=== PATIENT | male | born 1990 | race Caucasian/White ===

== ENCOUNTER 2023-08-25 13:34 | Emergency (ER) | payer OTHER, SELFPAY ==
[2023-08-25 13:46] VITALS: BP 129/74; PULSE 99; RESP 16; TEMP 38.1; O2SAT 99
--- NOTE | 2023-08-25 14:06 | ED.GENADULT ---
HPI - General Adult General Chief complaint: Extremity Injury, Upper Stated complaint: Chills/Numbness to Fingers/Nausea Source: patient and RN notes reviewed History of Present Illness HPI narrative: 32 yo M presents to urgent care with complaints of body aches, ARMENDARIZ, and nausea that started at 0800 today. Pt states about 8:30 am, his finger tips and hands turned blue for approximately 30 minutes. Pt states he was very cold at this time when his hands turned blue. Pt states he couldn't feel his hands at this time. Pt states he became anxious after his hands turned blue but was not hyperventilating prior to this. Pt denies any vomiting, chest pain, SOB, diarrhea, abdominal pain, sore throat, ear pain, or congestion. Review of Systems Review of Systems: Pertinent positives and pertinent negatives per HPI. PMFSH Comments At the time of my signature, I reviewed and agree with the nursing past medical, surgical, social, and family history. There is no relevant family history pertinent to the patient complaint. Exam Narrative: GENERAL: This is a well-nourished, well-developed patient, in no apparent distress. HEAD: normocephalic, atraumatic. EYES: Sclera clear/white. Vision is grossly intact. EARS: External ears normal, auditory canals clear and without drainage, TMs normal without perforation. Hearing grossly intact. NOSE: External nose normal with no obvious nasal discharge, nares without redness, no rhinorrhea. THROAT: Mucous membranes moist, posterior pharynx clear. NECK: Neck supple, non-tender without lymphadenopathy, masses or thyromegaly. CARDIOVASCULAR: Regular rate and rhythm without murmurs, gallops, or rubs. RESPIRATORY: Clear to auscultation. Breath sounds equal bilaterally. No wheezes, rales, or rhonchi. GASTROINTESTINAL: Abdomen soft, non-tender, nondistended. Bowel sounds are active. No hepato-splenomegaly, or palpable masses. No guarding. SKIN: warm, intact with no suspicious lesions or rash, good texture and turgor. NEURO: awake, alert, and oriented to person, place and time. There were no obvious focal neurologic abnormalities. EXTREMITIES: No clubbing, cyanosis, or edema. No joint tenderness, effusion, or edema noted. Cap refill < 2 sec. BACK: Nontender without deformity or crepitus. No flank tenderness. Course Course Level of Care: Express Care Visit Vital Signs Vital signs: Vital Signs Temperature 100.5 F H 08/25/23 13:46 Pulse Rate 99 08/25/23 13:46 Respiratory Rate 16 08/25/23 13:46 Blood Pressure 129/74 08/25/23 13:46 Pulse Oximetry 99 08/25/23 13:46 Oxygen Delivery Room Air 08/25/23 13:46 Temperature 100.5 F H 08/25/23 13:46 Pulse Rate 99 08/25/23 13:46 Respiratory Rate 16 08/25/23 13:46 Blood Pressure 129/74 08/25/23 13:46 Pulse Oximetry 99 08/25/23 13:46 Oxygen Delivery Room Air 08/25/23 13:46 reviewed Medical Decision Making MDM Narrative Medical decision making narrative: Viral illness may last between 7-21 days; antibiotics do not cure viral illness and are NOT recommended at this time. Also, recommend symptomatic treatment includes: rest, fluids, and increase humidity of the air at home. Recommend Acetaminophen as directed on the bottle to reduce fever, pain, headache. Please schedule a follow-up visit with your personal physician for further evaluation and treatment within 3-5days. If your symptoms persist, change or worsen significantly before you can contact your personal physician then please, without delay, go to the emergency department for further evaluation. Differential Diagnosis Differential Diagnosis: viral illness, raynaud's, hyperventilating Vital Signs Vital Signs: Vital Signs Temperature 100.5 F H 08/25/23 13:46 Pulse Rate 99 08/25/23 13:46 Respiratory Rate 16 08/25/23 13:46 Blood Pressure 129/74 08/25/23 13:46 Pulse Oximetry 99 08/25/23 13:46 Oxygen Delivery Room Air 08/25/23 13:46 Temperature 100.5
== END 2023-08-25 14:10 | disposition home or self-care (01) ==
PROVIDERS: Emergency Provider Nurse Practitioner Family
DX: B34.9 Viral infection, unspecified (principal)
CPT/HCPCS: 99213; G0463

== ENCOUNTER 2025-03-17 17:43 | Emergency (ER) | payer SELFPAY ==
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
--- OUTSIDE RECORDS SUMMARY | 2025-03-17 17:45 | XMS_ITS | Encounter Summary ---
Author Organization [facility] Healthcare Address [address] [place] [address] Care Team Providers Care Timber Management Assistant Name Role Phone Kenyon Phillips MD Primary Care Provider [phone] Reason for Visit * Diagnostic Imaging (Routine) - Closed Specialty Diagnoses / Procedures Referred By Contac t Referred To Contact Diagnoses Left knee pain, unspecified chronicity Procedures XR Pelvis 1 or 2 Views Brenda Frank PA [address] [place] [address] Phone: tel: fax: Referral ID Status Reason Start Date Expiration Date Visits Re quested Visits Authorized [id number] Closed 07/25/2023 08/23/2024 1 1 Encounter Details Date Type Department Care Team ([facility] st Contact Info) Description 07/25/2023 7:49 AM CDT Hospital Encounter [facility] Medical Group Orthopedics and Sports Medicine [address] [phone] Social History Tobacco Use Types Packs/Day Years Used Date Smoking Tobacco: Every Day Cigarettes 0.8 12.4 Started: 10/10/2012 Passive Smoke Exposure: Never Smokeless Tobacco: Never AUDIT-C Answer Date Recorded Q1: How often do you have a drink containing alc ohol? 2-3 times a week 09/14/2023 Q2: How many drinks containi ng alcohol do you have on a typical day when you are drinking? 3 or 4 09/14/2023 Q3: How often do you have si x or more drinks on one occasion? Never 09/14/2023 PHQ-2 Answer Date Recorded PHQ-2 Total Score (If total score is 3 or more points, staff should administer the PHQ-9) 0 09/14/2023 Personal Safety Answer Date Recorded Getting School Help Needed Not on file 09/29 Sex and Gender Information Value Date Recorded Sex Assigned at Not on file Legal Sex Male 9:54 AM CDT Gender Identity Not on file Sexual Orientation Not on file documented as of this encounter Functional Status * Audit-C Score Answer Date of Assessment Author 4 09/14/2023 10:58 AM Danielle Champion MA * Question Answer Date of Assessment Author Q1: How often do you have a drink containing alcohol? 2-3 times a week 09/14/2023 10:58 AM Judi Champion MA Q2: How many drinks containing alcohol do you have on a typical day when you are drinking? 3 or 4 09/14/2023 10:58 AM Judi Champion MA Q3: How often do you have six or more drinks on one occasion? Never 09/14/2023 10:58 AM Judi Champion MA documented as of this encounter Plan of Treatment Not on file documented as of this encounter Procedures Procedure Name Priority Date/Time Associated Diagnosis Comments XR PELVIS 1 OR 2 VIEWS Schedule Routine, Read Routine (OP Routine) 07/25/2023 1:04 PM CDT Left knee pain, unspecified chronicity documented in this encounter Results * XR Pelvis 1 or 2 Views (07/25/2023 1:04 PM CDT) Anatomical Region Laterality Modality Body, Pelvis N/A Digital Radiogra phy Narrative 07/25/2023 1:31 PM CDT X-ray of the pelvis reviewed and interpreted. There is no evidence of fracture, subluxation, or bony abnormality. Bilateral hip joint spaces well maintained. Brenda MILLAN IMMarcio XR PROCEDURES Nikki l Result documented in this encounter Visit Diagnoses Not on filedocumented in this encounter Care Teams Timber Management Assistant Relationship Specialty Start Date End Date Kenyon Pihllips MD NPI: [id number] [place] [address] [place] [address] PCP - General Family Medicine 06/15/23 documented as of this encounter
--- OUTSIDE RECORDS SUMMARY | 2025-03-17 17:45 | XMS_ITS | Continuity of Care Document ---
Author Organization [facility] Address [address] [place] [address] [place] [phone] Phone Care Team Providers Care Windows Administrator Name Role Phone Edy PT, MICAELAT, Isabella Unavailable Unavailable Procedures Procedure Date Progress Note Therapeutic Activities Neuromuscular Re-Ed Therapeutic Exercise Manual Therapy Therapeutic Activities Neuromuscular Re-Ed Therapeutic Exercise Manual Therapy Therapeutic Activities Neuromuscular Re-Ed Manual Therapy Therapeutic Exercise Therapeutic Activities Neuromuscular Re-Ed Therapeutic Exercise Manual Therapy Therapeutic Activities Neuromuscular Re-Ed Therapeutic Exercise Manual Therapy Therapeutic Activities Neuromuscular Re-Ed Therapeutic Exercise Manual Therapy Therapeutic Activities Neuromuscular Re-Ed Therapeutic Exercise Manual Therapy Therapeutic Activities Neuromuscular Re-Ed Therapeutic Exercise Manual Therapy Therapeutic Activities Neuromuscular Re-Ed Therapeutic Exercise Manual Therapy Therapeutic Activities Neuromuscular Re-Ed Therapeutic Exercise Manual Therapy PT Evaluation Low Complexity Therapeutic Activities Neuromuscular Re-Ed Therapeutic Exercise Manual Therapy Advance Directives Directive Yes / No Effective Date File Name No Information Encounters Encounter Description Practice Location Reason(s) For Visit Diagnoses Date Provider Providers Copied on Encounter [facility], [id number], tel:[phone] [place] No Information Edy Sewon. . [facility] [facility], [id number], tel:[phone] [place] No Information Edy Sewon. . Referring Provider: Jaciel [facility] [address], [place], [address]. tel:[phone] [place] [id number] [place] Heidi [address] [place] [address], [id number], tel:[phone] [place] No Information Addi Dent. . Referring Provider: Jaciel [facility] [address], [place], [address]. tel:[phone] [facility] [place] [address]idi [address] [place] [address], [id number], tel:[phone] [place] No Information Addi Dent. . Referring Provider: Jaciel [facility] [address], [place], [address]. tel:[phone] [facility] [place] Heidi [address] [place] [address], [id number], tel:[phone] [place] No Information Nickie Fallon. [address] [facility], [address], [place], [place], [facility], . tel:[phone] Referring Provider: Jaciel [facility] [address], [place], [address]. tel:[phone] [place] [id number] [facility] [address] [place] [address], [id number], [place] tel:[phone] [place] No Information Nickie Fallon. [address] [facility], [address], [place], [place], [facility], . tel:[phone] Referring Provider: Jaciel [facility] [address], [place], [address]. tel:[phone] [place], [place] [id number] [facility] [address] [place] [address], [id number], [place] tel:[phone] [place] No Information Addi Dent. . Referring Provider: Jaciel [facility] [address], [place], [address]. tel:[phone] [place], [place] [id number] [place] Heidi [address] [place] [address], [id number], [place] tel:[phone] [place] No Information Addi Dent. . Referring Provider: Jaciel [facility] [address], [place], [address]. tel:[phone] [place] [id number] [place] Heidi [address] [place] [address], [id number], [place] tel:[phone] [place] No Information Nickie aFllon. [address] [facility], [address], [place], [place], [facility], [place]. tel:[phone] Referring Provider: Jaciel [facility] [address], [place], [address]. tel:[phone] [place], [place] [id number] [facility] [address] [place] [address], [id number], [place] tel:[phone] [place] No Information Addi Dent. . Referring Provider: Jaciel [facility] [address], [place], [address]. tel:[phone] [facility] [address] [place] [address], [id number], tel:[phone] [place] No Information Addi Filipe. . Referring Provider: Jaciel [facility] [address], [place], [address]. tel:[phone] [facility], [address] [place], [place], [id number], tel:[phone] [place] No Information Rikki Pickett. . Referring Provider: Jaciel [facility] [address], [place], [address]. tel:[phone] Family History Family Member Type Diagnosis Age At Onset No Information Payers Payer name Insurance type Covered constitution party ID My burtsoy(s) [employer] CI [id number] Social History Type Description Quantity Date Captured Comments Sex Male Smoking Status No Information Chief Complaint And Reason For Visit No Information Reason For Referral Reason For Referral No Information Plan Of Treatment Date Type Action Status Goal Tobacco Cessation Counseling completed Goal Tobacco cessation counseling completed Goal Tobacco Cessation Counseling completed History Of Present Illness Encounter Date Complaint History Of Prese nt Illness No Information Functional Status Date Functional Assessmen t No Information Instructions Date Instruction Additional Infor mation No Information Assessments Type Assessment Date No Information Patient Care Teams Name Effective Dates (start - stop) Status Members No Information
--- OUTSIDE RECORDS SUMMARY | 2025-03-17 17:45 | XMS_ITS | Clinical Summary ---
Author Organization [facility] Address [address] [facility] [address] [place] [address] Phone Care Team Providers Care Commissioning Specialist Name Role Phone Kenyon Phillips MD Primary Care Provider [phone] Allergies Active Allergy Reactions Criticality Noted Date Comments Sulfa (Sulfonamide Antibiotics) Unknown 05/23/2023 Reportedly was informed as a child Medications naproxen sodium (ALEVE ORAL) Take by mouth Act christin fluticasone propionate (FLONASE) 50 mcg/actuation nasal spray Administer 2 sprays into each nostril daily 1 each 3 Active Active Problems Problem Noted Date Diagnosed Date Non-recurrent acute suppurat christin otitis media of left ear without spontaneous rupture of tympanic membrane 09/14/2023 Assessment & Plan (09/14/2023 12:13 PM STITCHER FEEDER): Will treat with Augmentin. I also gave him Flonase. If symptoms do not improve in 5-10 days I asked him return for recheck Mild intermittent asthma without complication Assessment & Plan (06/15/2023 10:20 AM CDT): Stable at this time Has not been using inhalers since he moved away from [place] Immunizations Immunization Administration Dates Next Due DTaP 05/30/1996, 4,1990,11/27 Hep B, Adolescent or Pediatric 02/27/2001,1999,08/23/2000 HiB 12/14/1991,04/05/1991 Influenza, Quadrivalent, Rec ombinant, Egg Free, Preservative Free, Intramuscular 12/27/2018 Influenza, Unspecified 09/14/2023(Deferr ed: Patient Refused),06/10/2022(Deferred: Patient Refused) MMR 05/30/1996,12/14/1991 OPV 05/30/1996, 4,04/05/1991,12/25,1990 Medical History Medical History Date Comments Asthma Family History Medical History Relation Name Comments No Known Problems Father Crohn's disease Mother Lupus Mother Relation Name Status Comments Father Alive Mother Alive Social History Tobacco Use Types Packs/Day Years Used Date Smoking Tobacco: Every Day Cigarettes 0.8 12.4 Started: 10/10/2012 Passive Smoke Exposure: Never Smokeless Tobacco: Never Tobacco Cessation:Ready to Q uit: Yes AUDIT-C Answer Date Recorded Q1: How often [...] on file Sexual Orientation Not on file Obstetrics History Last Filed Vital Signs Vital Sign Reading Time Taken Comments Blood Pressure 118/74 09/14/2023 10:59 AM STITCHER FEEDER Pulse 76 09/14/2023 10:59 AM STITCHER FEEDER Temperature - - Respiratory Rate 16 09/14/2023 10:59 AM STITCHER FEEDER Oxygen Saturation 97% 09/14/2023 10:59 AM STITCHER FEEDER Inhaled Oxygen Concentration - - Weight 71.3 kg (157 lb 3.2 oz) 09/14/2023 10:59 AM STITCHER FEEDER Height 183 cm (6' 0.05) 09/14/2023 10:59 AM STITCHER FEEDER Body Mass Index 21.29 09/14/2023 10:59 AM STITCHER FEEDER Plan of Treatment Health Maintenance Due Date Last Done Comments Hepatitis C Screening 1990 DTaP/Tdap/Td Vaccine (5 - Tdap) 2001 05/30/1996, 01/25/1994, 1990, Additional history exists Varicella Vaccines (1 of 2 - 13+ 2-dose series) 2003 Regular Well Visit/Exam 18-64 2008 Pneumococcal vaccine <65 (1 of 2 - PCV) 2009 Depression Screening 09/14/2024 09/14/2023, 06/15/20 23 Influenza Vaccine (Season Ended) 2025 12/27/2018 Hepatitis B Screening Completed 02/27/2001 , 09/26/2000, 08/23/2000 HPV Vaccines Aged Out No longer eligi ble based on patient's age to complete this topic Insurance [employer] OPEN ACCESS Care Teams Commissioning Specialist Relationship Specialty Start Date End Date Kenyon Phillips MD [address] [facility] [address] [place] [address] PCP - General Family Medicine 06/15/23
--- OUTSIDE RECORDS SUMMARY | 2025-03-17 17:45 | XMS_ITS | Encounter Summary ---
Author Organization [facility] Healthcare Address [address] [place] [address] Care Team Providers Care Door Liner Name Role Phone Kenyon Phillips MD Primary Care Provider [phone] Reason for Visit * Diagnostic Imaging (Routine) - Closed Specialty Diagnoses / Procedures Referred By Contac t Referred To Contact Diagnoses Left knee pain, unspecified chronicity Procedures XR Knee Left 4 or More Views Brenda Frank PA [address] [place] [address] Phone: tel: fax: Referral ID Status Reason Start Date Expiration Date Visits Re quested Visits Authorized [id number] Closed 07/25/2023 08/23/2024 1 1 Encounter Details Date Type Department Care Team ([facility] st Contact Info) Description 07/25/2023 7:49 AM CDT Hospital Encounter [facility] Medical Group Orthopedics and Sports Medicine [address] [phone] Social History Tobacco Use Types Packs/Day Years [...] Name Priority Date/Time Associated Diagnosis Comments XR KNEE LEFT 4 OR MORE VIEWS Schedule Routine, Read Routine (OP Routine) 07/25/2023 1:04 PM CDT Left knee pain, unspecified chronicity documented in this encounter Results * XR Knee Left 4 or More Views (07/25/2023 1:04 PM CDT) Anatomical Region Laterality Modality Lower Extremities, Knee Left Digital Radiography Narrative 07/25/2023 1:31 PM CDT X-ray of the left knee viewed and interpreted. There is no evidence of fracture, subluxation, or bony abnormality. Joint spaces well-maintained. Brenda MILLAN IMG XR PROCEDURES Nikki l Result documented in this encounter Visit Diagnoses Not on filedocumented in this encounter Care Teams Door Liner Relationship Specialty Start Date End Date Kenyon Phillips MD [address] [address] PCP - General Family Medicine 06/15/23 documented as of this encounter
--- OUTSIDE RECORDS SUMMARY | 2025-03-17 17:45 | XMS_ITS | Clinical Summary ---
Author Organization [facility] Address [address] [place] [address] Phone Care Team Providers Care Sybase Developer Name Role Phone Provider, None Primary Care Provider Unavailabl e Allergies Active Allergy Reactions Criticality Noted Date Comments Sulfa Antibiotics Unknown 05/23/2023 Medications No known medications Social History Tobacco Use Types Packs/Day Years Used Date Smoking Tobacco: Unknown Tobacco Cessation:Counseling Given: Not Answered Sex and Gender Information Value Date Recorded Sex Assigned at Male 05/23/2023 3:15 PM CDT Legal Sex Male 11:37 PM CDT Gender Identity Male 05/23/2023 3:15 PM CDT Sexual Orientation Not on file Last Filed Vital Signs Vital Sign Reading Time Taken Comments Blood Pressure 138/93 05/23/2023 3:15 PM CDT Pulse 69 05/23/2023 3:15 PM CDT Temperature 37 C (98.6 F) 05/23/2023 2:37 PM CDT Respiratory Rate 16 05/23/2023 2:37 PM CDT Oxygen Saturation 95% 05/23/2023 3:15 PM CDT Inhaled Oxygen Concentration - - Weight 69.8 kg (153 lb 14.1 oz) 05/23/2023 2:37 PM CDT Height 182.9 cm (6') 05/23/2023 2:37 PM CDT Body Mass Index 20.87 05/23/2023 2:37 PM CDT Plan of Treatment Health Maintenance Due Date Last Done Comments Hepatitis C Virus (HCV) Screening 1990 TdaP Immunization 1990 SARS-COV-2 Immunization ( season) 2024 Influenza Immunization (Season Ended) 2025 12/27/2018 Respiratory Syncytial Virus (RSV) Immunization (Adult) (1 - 1-dose 75+ series) 2065 DTaP/Tdap/Td Immunization Discontinued 1995, 01/25/1994, 1990, Additional history exists Hepatitis B Immunization Completed 001, 09/26/2000, 08/23/2000 Human Papillomavirus (HPV) Immunization Aged Out No longer eligible based on patient's age to complete this topic Meningococcal Immunization (ACWY) Aged Out No longer eligible based on patient's age to complete this topic Pneumococcal Immunization Combined Aged Out No longer eligible based on patient's age to complete this topic Rotavirus Immunization Aged Out No lo nger eligible based on patient's age to complete this topic Insurance [employer] Care Teams Sybase Developer Relationship Specialty Start Date End Date Provider, None [place] PCP - General 05/23/23
--- OUTSIDE RECORDS SUMMARY | 2025-03-17 17:45 | XMS_ITS | Continuity of Care Document ---
Author Organization [facility] Address [address] [facility] [address] [place] [address] Phone Care Team Providers Care Vat Skimmer Name Role Phone Dav Álvarez Unavailable Unavailable Procedures Procedure Date Office Consultation Ophthalmoscopy Eye Exam Established Pt Eye Exam, New Patient Advance Directives Directive Yes / No Effective Date File Name No Information Encounters Encounter Description Practice Location Reason(s) For Visit Diagnoses Date Provider Providers Copied on Encounter Office Consultation [facility], [address] [place] [address] [address], [place], [place], [id number], tel:[phone] [facility] No Information [address] [place], [address], [place]. tel:[phone] Referring Provider: Bruno Mcginnis OD Latanya, [address], [place], [address]. tel:[phone] [facility], [address] [place] [address] [address], [place], [place], [id number], tel:[phone] [facility] No Information 8-[address] 7 Mcginnis OD Bruno. [address], [place], [address], [place]. tel:[phone] [facility], [address], [place], [place], [id number], [place] tel:[phone] [facility] No Information 7 Jevon Myers. [address], [place], [address], [place]. tel:[phone] Referring Provider: Chelsea Daniel MD, [address], [place], [address]. tel:[phone] Family History Family Member Type Diagnosis Age At Onset No Information Payers Payer name Insurance type Covered green party ID Authoriza tion(s) No Information Social History Type Description Quantity Date Captured Comments Sex Male Smoking Status No Information Chief Complaint And Reason For Visit No Information Reason For Referral Reason For Referral No Information History Of Present Illness Encounter Date Complaint History Of Prese nt Illness No Information Functional Status Date Functional Assessmen t No Information Instructions Date Instruction Additional Infor mation No Information Assessments Type Assessment Date No Information Patient Care Teams Name Effective Dates (start - stop) Status Members No Information
--- OUTSIDE RECORDS SUMMARY | 2025-03-17 17:45 | XMS_ITS | Referral Summary ---
Author Organization [facility] Address [address] [place] [address] Phone Care Team Providers Care Director Of Retail Merchandising Name Role Phone Kenyon Phillips MD Primary Care Provider [phone] Allergies Active Allergy Reactions Criticality Noted Date [...] 09/14/2023 Assessment & Plan (09/14/2023 12:13 PM BIT AND SHANK DEPARTMENT SUPERVISOR): Will treat with Augmentin. I also gave him Flonase. If symptoms do not improve in 5-10 days I asked him return for recheck Mild intermittent asthma without complication Assessment & Plan (06/15/2023 10:20 AM CDT): Stable at this time Has not been using inhalers since [place] Immunizations Immunization Administration Dates Next Due DTaP 05/30/1996, 4,1990,11/27 Hep B, Adolescent or Pediatric 02/27/2001,1999,08/23/2000 HiB 12/14/1991,04/05/1991 Influenza, Quadrivalent, Rec ombinant, Egg Free, Preservative Free, Intramuscular 12/27/2018 Influenza, Unspecified 09/14/2023(Deferr ed: Patient Refused),06/10/2022(Deferred: Patient Refused) MMR 05/30/1996,12/14/1991 OPV 05/30/1996, 4,04/05/1991,12/25,1990 Social History Tobacco Use Types Packs/Day Years [...] on file Sexual Orientation Not on file Last Filed Vital Signs Vital Sign Reading Time Taken Comments Blood Pressure 118/74 09/14/2023 10:59 AM BIT AND SHANK DEPARTMENT SUPERVISOR Pulse 76 09/14/2023 10:59 AM BIT AND SHANK DEPARTMENT SUPERVISOR Temperature - - Respiratory Rate 16 09/14/2023 10:59 AM BIT AND SHANK DEPARTMENT SUPERVISOR Oxygen Saturation 97% 09/14/2023 10:59 AM BIT AND SHANK DEPARTMENT SUPERVISOR Inhaled Oxygen Concentration - - Weight 71.3 kg (157 lb 3.2 oz) 09/14/2023 10:59 AM BIT AND SHANK DEPARTMENT SUPERVISOR Height 183 cm (6' 0.05) 09/14/2023 10:59 AM BIT AND SHANK DEPARTMENT SUPERVISOR Body Mass Index 21.29 09/14/2023 10:59 AM BIT AND SHANK DEPARTMENT SUPERVISOR Plan of Treatment Not on file Insurance HE[employer] OPEN ACCESS HE[employer]LINK OPEN ACCESS Care Teams Director Of Retail Merchandising Relationship Specialty Start Date End Date Kenyon Phillips MD [address] [place] [address] PCP - General Family Medicine 06/15/23
[2025-03-17 17:55] VITALS: BP 136/91; PULSE 88; RESP 18; TEMP 36.6; O2SAT 100
--- NOTE | 2025-03-17 19:22 | PC.NURSE ---
Report received from SUKUMAR Juarez. Assumed care of patient at this time.
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
--- OUTSIDE RECORDS SUMMARY | 2025-03-17 20:13 | XMS_ITS | Continuity of Care Document ---
Author Organization [email or web address] [facility] Address [address] [place] [address] [place] [id number] Phone Care Team Providers Care Instrument Shop Supervisor Name Role Phone Edy PT, MICAELAT, Isabella [...] Re-Ed Therapeutic Exercise Manual Therapy Therapeutic Activities Therapeutic Exercise Neuromuscular Re-Ed Manual Therapy Therapeutic Activities Neuromuscular Re-Ed Therapeutic [...] Diagnoses Date Provider Providers Copied on Encounter [facility], [id number], tel:[phone] [place] No Information Edy Sewon. . [facility], [id number], tel:[phone] [place] No Information Edy Sewon. . Referring Provider: Jaciel Peraza [facility] [address], [place], [address]. tel:[phone] [place], [place] [id number] [place] Heidi [address] [place] [address], [id number], tel:[phone] [place] No Information Addi Dent. . Referring Provider: Jaciel Peraza [facility] [address], [place], [address]. tel:[phone] [facility] [place] [address]idi [address] [place] [address], [id number], tel:[phone] [place] No Information Addi Dent. . Referring Provider: Jaciel Peraza [facility] [address], [place], [address]. tel:[phone] [facility] [place] [address]idi [address] [place] [address], [id number], tel:[phone] [place] No Information Nickie Fallon. [address] [facility], [address], [place], [place], [facility], . tel:[phone] Referring Provider: Jaciel Peraza [facility] [address], [place], [address]. tel:[phone] [place], [place] [id number] [facility] [address] [place] [address], [id number], [place] tel:[phone] [place] No Information Nickie Fallon. [address] [facility], [address], [place], [place], [facility], . tel:[phone] Referring Provider: Jaciel Peraza [facility] [address], [place], [address]. tel:[phone] [place], [place] [id number] [facility] [address] [place] [address], [id number], [place] tel:[phone] [place] No Information Addi Dent. . Referring Provider: Jaciel Peraza [facility] [address], [place], [address]. tel:[phone] [place], [place] [id number] [place] Heidi [address] [place] [address], [id number], [place] tel:[phone] [place] No Information Addi Dent. . Referring Provider: Jaciel Peraza [facility] [address], [place], [address]. tel:[phone] [place], [place] [id number] [place] Heidi [address] [place] [address], [id number], [place] tel:[phone] [place] No Information Nickie Fallon. [address] [facility], [address], [place], [place], [facility], [place]. tel:[phone] Referring Provider: Jaciel Peraza [facility] [address], [place], [address]. tel:[phone] [place] [id number] [facility] [address] [place] [address], [id number], [place] tel:[phone] [place] No Information Addi Dent. . Referring Provider: Jaciel Peraza [facility] [address], [place], [address]. tel:[phone] [facility] [address] [place] [address], [id number], tel:[phone] [place] No Information Addi Filipe. . Referring Provider: Jaciel Peraza [facility] [address], [place], [address]. tel:[phone] [facility], [address], [place], [id number], tel:[phone] [place] No Information Rikki Pickett. . Referring Provider: Jaciel Peraza [facility] [address], [place], [address]. tel:[phone] Family History Family Member Type Diagnosis Age At Onset No Information Payers Payer name Insurance type Covered constitution party ID My burtsoy(s) [employer] CI [id number] Social History Type Description Quantity Date Captured [...]
--- OUTSIDE RECORDS SUMMARY | 2025-03-17 20:13 | XMS_ITS | Clinical Summary ---
Author Organization [facility] Address [address] [place] [address] Phone Care Team Providers Care Asbestos Brake Lining Finisher Helper Name Role Phone Kenyon Phillips MD Primary Care Provider [phone] Allergies Active Allergy Reactions Criticality Noted Date [...] 09/14/2023 Assessment & Plan (09/14/2023 12:13 PM STUDENT UNION CONSULTANT): Will treat with Augmentin. I also gave him Flonase. If symptoms do not improve in 5-10 days I asked him return for recheck Mild intermittent asthma without complication Assessment & Plan (06/15/2023 10:20 AM CDT): Stable at this time Has not been using inhalers since he moved away from [place] Immunizations Immunization Administration Dates Next Due DTaP [...] Comments Blood Pressure 118/74 09/14/2023 10:59 AM STUDENT UNION CONSULTANT Pulse 76 09/14/2023 10:59 AM STUDENT UNION CONSULTANT Temperature - - Respiratory Rate 16 09/14/2023 10:59 AM STUDENT UNION CONSULTANT Oxygen Saturation 97% 09/14/2023 10:59 AM STUDENT UNION CONSULTANT Inhaled Oxygen Concentration - - Weight 71.3 kg (157 lb 3.2 oz) 09/14/2023 10:59 AM STUDENT UNION CONSULTANT Height 183 cm (6' 0.05) 09/14/2023 10:59 AM STUDENT UNION CONSULTANT Body Mass Index 21.29 09/14/2023 10:59 AM STUDENT UNION CONSULTANT Plan of Treatment Health Maintenance Due Date [...] patient's age to complete this topic Insurance [employer] OPEN ACCESS Care Teams Asbestos Brake Lining Finisher Helper Relationship Specialty Start Date End Date Kenyon Phillips MD [address] [place] [id number] PCP - General Family Medicine 06/15/23
--- OUTSIDE RECORDS SUMMARY | 2025-03-17 20:13 | XMS_ITS | Continuity of Care Document ---
Author Organization [facility] Address [address] [place] [address] Phone Care Team Providers Care Tab Cutter Name Role Phone Dav Álvarez Unavailable Unavailable Procedures Procedure Date Office Consultation Ophthalmoscopy Eye Exam Established Pt Eye Exam, New Patient Advance Directives Directive Yes / No Effective Date File Name No Information Encounters Encounter Description Practice Location Reason(s) For Visit Diagnoses Date Provider Providers Copied on Encounter Office Consultation [facility], [address] [place] [address] [address], [place], [place], [id number], tel:[phone] [facility] No Information [address] [place], [address], [place]. tel:[phone] Referring Provider: Bruno Mcginnis OD Latanya, [address], [place], [address]. tel:[phone] [facility], [address] [place] [address] [address], [place], [place], [id number], tel:[phone] [facility] No Information 8-200 7 Mcginnis OD Bruno. [address], [place], [address], [place]. tel:[phone] [facility], [address], [place], [place], [id number], [place] tel:[phone] [facility] No Information 7 Jevon Myers. [address], [place], [address], [place]. tel:[phone] Referring Provider: Chelsea Daniel MD, [address], [place], [address]. tel:[phone] Family History Family Member Type Diagnosis Age At Onset No Information Payers Payer name Insurance type Covered alliance party ID Authoriza tion(s) No Information Social [...]
--- OUTSIDE RECORDS SUMMARY | 2025-03-17 20:13 | XMS_ITS | Referral Summary ---
Author Organization [facility] Address [address] [place] [address] Phone Care Team Providers Care Hoisting Engineer Name Role Phone Kenyon Phillips MD Primary Care Provider [phone] Allergies Active Allergy Reactions Criticality Noted Date [...] 09/14/2023 Assessment & Plan (09/14/2023 12:13 PM MILITARY COMMUNICATIONS SPECIALIST): Will treat with Augmentin. I also gave him Flonase. If symptoms do not improve in 5-10 days I asked him return for recheck Mild intermittent asthma without complication Assessment & Plan (06/15/2023 10:20 AM CDT): Stable at this time Has not been using inhalers since he moved away from [place] Immunizations Immunization Administration Dates Next Due DTaP [...] Comments Blood Pressure 118/74 09/14/2023 10:59 AM MILITARY COMMUNICATIONS SPECIALIST Pulse 76 09/14/2023 10:59 AM MILITARY COMMUNICATIONS SPECIALIST Temperature - - Respiratory Rate 16 09/14/2023 10:59 AM MILITARY COMMUNICATIONS SPECIALIST Oxygen Saturation 97% 09/14/2023 10:59 AM MILITARY COMMUNICATIONS SPECIALIST Inhaled Oxygen Concentration - - Weight 71.3 kg (157 lb 3.2 oz) 09/14/2023 10:59 AM MILITARY COMMUNICATIONS SPECIALIST Height 183 cm (6' 0.05) 09/14/2023 10:59 AM MILITARY COMMUNICATIONS SPECIALIST Body Mass Index 21.29 09/14/2023 10:59 AM MILITARY COMMUNICATIONS SPECIALIST Plan of Treatment Not on file Insurance HEALTHLINK OPEN ACCESS HEALTHLINK OPEN ACCESS Care Teams Hoisting Engineer Relationship Specialty Start Date End Date Kenyon Phillips MD [address] [facility] [place] [address] PCP - General Family Medicine 06/15/23
--- OUTSIDE RECORDS SUMMARY | 2025-03-17 20:13 | XMS_ITS | Encounter Summary ---
Author Organization [facility] Address [address] [place] [address] Care Team Providers Care Printed Forms Proofreader Name Role Phone Kenyon Phillips MD Primary Care Provider [phone] Reason for Visit * Diagnostic Imaging (Routine) - Closed Specialty Diagnoses / Procedures Referred By Contac t Referred To Contact Diagnoses Left knee pain, unspecified chronicity Procedures XR Knee Left 4 or More Views Brenda Frank PA [address] [place] [address] Phone: tel: fax: Referral ID Status Reason Start Date Expiration Date Visits Re quested Visits Authorized [id number] Closed 07/25/2023 08/23/2024 1 1 Encounter Details Date Type Department Care Team ([facility] st Contact Info) Description 07/25/2023 7:49 AM CDT Hospital Encounter [facility] Orthopedics and Sports Medicine [address] [phone] Social History Tobacco Use Types Packs/Day Years [...] on filedocumented in this encounter Care Teams Printed Forms Proofreader Relationship Specialty Start Date End Date Kenyon Phillips MD [address] [address] PCP - General Family Medicine 06/15/23 documented as of this encounter
--- OUTSIDE RECORDS SUMMARY | 2025-03-17 20:13 | XMS_ITS | Clinical Summary ---
Author Organization [facility] Address [address] [place] [address] Phone Care Team Providers Care Sales Representative Advertising Name Role Phone Provider, None Primary Care [...] patient's age to complete this topic Insurance [employer] Care Teams Sales Representative Advertising Relationship Specialty Start Date End Date Provider, None [place] PCP - General 05/23/23
--- OUTSIDE RECORDS SUMMARY | 2025-03-17 20:13 | XMS_ITS | Encounter Summary ---
Author Organization [facility] Address [address] [place] [address] Care Team Providers Care Body Man Name Role Phone Kenyon Phillips MD Primary Care Provider [phone] Reason for Visit * Diagnostic Imaging (Routine) - Closed Specialty Diagnoses / Procedures Referred By Contac t Referred To Contact Diagnoses Left knee pain, unspecified chronicity Procedures XR Pelvis 1 or 2 Views Brenda Frank PA [address] [place] [address] Phone: tel: fax: Referral ID Status Reason Start Date Expiration Date Visits Re quested Visits Authorized [id number] Closed 07/25/2023 08/23/2024 1 1 Encounter Details Date Type Department Care Team ([facility] st Contact Info) Description 07/25/2023 7:49 AM CDT Hospital Encounter [facility] Medical Group Orthopedics and Sports Medicine [address] [phone] Social History Tobacco Use Types Packs/Day Years [...] on filedocumented in this encounter Care Teams Body Man Relationship Specialty Start Date End Date Kenyon Phillips MD NPI: [id number] [place] [address] [place] [address] PCP - General Family Medicine 06/15/23 documented as of this encounter
[2025-03-17 20:32] VITALS: BP 140/99; PULSE 76; RESP 18; TEMP 36.8; O2SAT 100
[2025-03-17] MEDS: TETANUS,DIPHTHERIA,AC PERTUSSIS ADULT (0.5 ML) BOOSTRIX IM (20:32)
[2025-03-17] MEDS: IBUPROFEN 600 MG TABLET PO (20:32)
== END 2025-03-17 20:44 | disposition home or self-care (01) ==
PROVIDERS: Emergency Provider Emergency Medicine
DX: S63.91XA Sprain of unspecified part of right wrist and hand, initial encounter (principal); S60.511A Abrasion of right hand, initial encounter; Y04.0XXA Assault by unarmed brawl or fight, initial encounter; Z23 Encounter for immunization
CPT/HCPCS: 73130; 90471; 90715; 99283; A9270